=== PATIENT | male | born 1980 | race Two or more races ===

== ENCOUNTER 2018-04-26 20:58 | Emergency (ER) | payer BC ==
[~2018-04-26] VITALS: Ht 185.4 cm; Wt 104.3 kg
--- NOTE | 2018-04-26 21:14 | NUR ---
PT BIBRA FROM HOME S/P WITTNESSED SEIZURE. PER RA, PT'S PARTNER STATES PT WAS SITTING IN COUCH, SLID DOWN, AND HAD TONIC CLONIC SEIZURE LASTING APPROX 30 SEC. PT ALSO C/O NAUSEA. NOTED ORAL TRAUMA ON LIP. PT DENIES SOB, HEADACHE, DIZZINESS, CP. PT AAOX4. RESPIRATIONS EVEN AND UNLABORED. HYPERTENSION NOTED, MD AWARE. 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
--- NOTE | 2018-04-26 21:17 | NUR ---
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
[2018-04-26] MEDS ORDERED: ONDANSETRON HCL/PF 4 MG/2 ML VIAL ONE (21:25)
[2018-04-26 21:26] LABS: BASOPHILS # (AUTO) 0.1 /CMM (0.0-0.2); BASOPHILS % (AUTO) 0.8 % (0.0-2.0); EOSINOPHILS % (AUTO) 3.2 % (0.0-6.0); HEMATOCRIT 50 % (39-51); HEMOGLOBIN 16.7 g/dL (13.5-17.5); LYMPHOCYTES % (AUTO) 36.4 % (20.0-44.0); MEAN CORPUSCULAR HGB CONC 33 g/dl (31.0-36.0); MEAN CORPUSCULAR VOLUME 92 fL (80-96); MONOCYTES % (AUTO) 9.1 % (2.0-12.0); NEUTROPHILS # (AUTO) 5.6 /CMM (1.8-8.9); NEUTROPHILS % (AUTO) 50.5 % (43.0-81.0); PLATELET COUNT (AUTO) 250 /CMM (150-450); RED BLOOD CELL COUNT(AUTO) 5.43 MIL/uL (4.5-6.0); WHITE BLOOD COUNT (AUTO) 11.1 K/uL (4.3-11.0)
--- NOTE | 2018-04-26 21:26 | NUR ---
PER VERBAL MD ORDER, ADMINSITERED ZOFRAN 4MG IV X1 NOW, RIGHT HAND 18G
--- NOTE | 2018-04-26 21:28 | NUR ---
PT BROUGHT BY RADIOLOGY FOR CT
[2018-04-26 21:35] LABS: CALCIUM, SERUM 9.6 mg/dL (8.5-10.1); CARBON DIOXIDE 22 mmol/L (21-32); CHLORIDE 104 mmol/L (98-107); CREATININE 1.2 mg/dL (0.6-1.3); GLUCOSE 121 mg/dL (74-106); POTASSIUM 3.7 mmol/L (3.5-5.1); SODIUM SERUM 142 mmol/L (136-145); UREA NITROGEN, BLOOD 15 mg/dL (7-18)
--- NOTE | 2018-04-26 21:38 | NUR ---
PT RETURNED FROM CT
[2018-04-26 21:43] LABS: ALANINE AMINOTRANSFERASE 36 U/L (12-78); ALBUMIN 4.6 g/dL (3.4-5.0); ALCOHOL, BLOOD < 3 mg/dL (0-0); ALKALINE PHOSPHATASE 89 U/L (46-116); ASPARTATE AMINOTRANSFERASE 15 U/L (15-37); BILIRUBIN,DIRECT 0.1 mg/dL (0.0-0.2); BILIRUBIN,TOTAL 0.4 mg/dL (0.2-1.0); TOTAL PROTEIN, SERUM 7.9 g/dL (6.4-8.2)
--- NOTE | 2018-04-26 21:46 | NUR ---
URINE COLLECTED AND SENT TO LAB
[2018-04-26] MEDS ORDERED: ONDANSETRON HCL/PF - ER 4 MG/2 ML VIAL IV ONE (22:00)
--- NOTE | 2018-04-26 22:16 | NUR ---
Patient discharged to home in stable condition. Written and verbal after care instructions given. Patient verbalizes understanding of instruction. IV removed. Catheter intact and site benign. Pressure and 4x4 applied to site. No bleeding noted. Pt ambulatory with a steady gait
[2018-04-26 22:17] VITALS: BP 163/112
== END 2018-04-26 22:18 | disposition home or self-care (01) ==
LOC: ER 21:02
DX: R56.9 Unspecified convulsions (principal); I10 Essential (primary) hypertension; E78.00 Pure hypercholesterolemia, unspecified
CPT/HCPCS: 36415; 70450; 71045; 80048; 80076; 80305; 80307; 82962; 85025; 85730; 93005; 96374; 99284; A4606; J2405; G0480